=== PATIENT | male | born 1970 | race Caucasian/White ===

== ENCOUNTER → 2018-06-25 | Outpatient (CLI) | payer BC, OTHER ==
--- NOTE | 2018-06-25 12:01 | KCIC ---
MR of the right shoulder Indication: Right shoulder pain. Decreased range of motion for one year. Pain with certain movements.. Comparison: None are available. Technique: Standard multiplanar sequences are obtained. Findings: Artifact: No significant image degradation. Acromioclavicular joint:Intact. Rotator cuff: * Supraspinatus-infraspinatus tendon: Diffuse thickening and heterogeneity compatible with tendinosis. Deep bursal surface tear of the infraspinatus tendon, measures about 1 cm AP diameter and crosses 90% of the tendon. At the posterior aspect of this tear is a much smaller full-thickness component without retraction. * Subscapularis tendon: Tendinosis, partial tearing of the upper fibers. * Muscle bulk: Moderate chronic appearing atrophy and fatty infiltration of the teres minor muscle, relatively isolated. * Subacromial subdeltoid bursa: Trace effusion. Fluid: No significant glenohumeral effusion. Glenohumeral cartilage: No acute defect or advanced DJD. Labrum: Mild distortion of the superior labrum, compatible with degeneration, Biceps tendon: Intact Bones: No lesion or acute fracture. Soft tissue: No acute findings.. Impression: 1. Small deep bursal side tear of the infraspinatus tendon, with a smaller subcomponent of nonretracted full-thickness tear at its posterior edge. Partial mild upper subscapularis tendon tear. 2. Isolated moderate chronic appearing teres minor muscle atrophy and fatty infiltration, typically is due to denervation, but no compressing lesion is seen along the course of the axillary nerve. 3. Superior labral degeneration. Electronically signed by: Nate Narayan MD (06/25/2018 11:58 AM) [id number]
== END | disposition home or self-care (01) ==
LOC: KCIC MRI 07:41
PROVIDERS: ATTEND Chiropractor
DX: S46.811A Strain of other muscles, fascia and tendons at shoulder and upper arm level, right arm, initial encounter (principal); X58.XXXA Exposure to other specified factors, initial encounter; Y93.89 Activity, other specified; Y92.89 Other specified places as the place of occurrence of the external cause; Y99.8 Other external cause status
CPT/HCPCS: 73221